=== PATIENT | male | born 1995 | race Caucasian/White ===

== ENCOUNTER 2024-08-18 09:37 | Emergency (ER) | payer MEDICAID, SELFPAY ==
[2024-08-18 09:46] VITALS: BP 139/95; PULSE 104; O2SAT 99
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
[2024-08-18 09:52] VITALS: BP 139/95; PULSE 99; RESP 20; TEMP 36.7; O2SAT 99; BMI 32.5
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
[2024-08-18 10:00] VITALS: BP 119/78; PULSE 91; O2SAT 98
[2024-08-18] MEDS: ACETAMINOPHEN 500MG TAB 1000 MG PO (10:02)
[2024-08-18] MEDS: LIDOCAINE 5% TRANSDERMAL PATCH 1 EACH TD (10:02)
[2024-08-18] MEDS: METHOCARBAMOL 500MG TABLET 1500 MG PO (10:02)
[2024-08-18 10:03] LABS: Basophils # 0.1 K/mm3 (0-0.2); Basophils % 0.5 % (0.1-2.0); Eosinophils # 0.5 Kmm3 (0.0-0.4); Eosinophils % 4.1 % (0.1-12.0); Lymphocytes # 2.1 K/mm3 (0.7-4.5); Lymphocytes % 15.9 % (10-50); Mean Corpuscular HGB Conc 34.1 g/dL (31.8-35.4); Mean Corpuscular Hemoglobin 32.3 pg (27.0-31.2); Mean Corpuscular Volume 94.5 fl (80-94); Mean Platelet Volume 9.8 fl (7.4-10.4); Monocytes # 1.3 K/mm3 (0.1-1.0); Monocytes % 10.3 % (1.7-9.3); Neutrophils % 68.9 % (37.0-80.0); Nucleated Red Blood Cells # 0 10^3/uL; Nucleated Red Blood Cells % 0 %; Platelet Count 304 K/mm3 (142-424); Red Blood Count 4.34 M/mm3 (4.60-6.20); Red Cell Distribution Width 13.4 % (11.5-17.5); Red Cell Distribution Width-SD 46.8 fL; White Blood Count 13.1 K/mm3 (4.8-10.8)
[2024-08-18 10:07] LABS: Albumin Level 4.4 g/dl (3.5-5.0); Chloride 109 mmol/L (98-107)
[2024-08-18 10:08] LABS: Potassium 4.2 mmoL/L (3.5-5.1); Sodium 139 mmol/L (136-145)
[2024-08-18 10:10] LABS: Alanine Aminotransferase 36 U/L (12-78); Aspartate Amino Transferase 31 U/L (17-59); Blood Urea Nitrogen 12 mg/dl (9-20); Creatinine Clearance Estimated 220 mL/min (50-200); Estimated Glomerular Filt Rate 133 ml/min (>60); GFR (African American) 161 ML/MIN (>60)
[2024-08-18 10:11] LABS: Albumin/Globulin Ratio 1.8 (1.1-1.8); Alkaline Phosphatase 84 U/L (38-126); Anion Gap 11.2 mEq/L (5-15); Bilirubin,Total 1.1 mg/dl (0.2-1.3); Calcium 8.7 mg/dl (8.4-10.2); Carbon Dioxide 23 mmol/L (22.0-30.0); Globulin 2.4 g/dL (1.3-3.2); Glucose 126 mg/dl (74-100); Lipase 36 U/L (23-300); Total Protein,Serum 6.8 g/dl (6.3-8.2)
--- NOTE | 2024-08-18 10:21 | PC.NURSE ---
pt gone to radiology
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
[2024-08-18] MEDS: 0.9 % SODIUM CHLORIDE 50 ML VIAL IV (10:35)
[2024-08-18] MEDS: SODIUM CHLORIDE 0.9% 10ML SYR (RAD ONLY) 10 ML IV (10:35)
[2024-08-18] MEDS: IOPAMIDOL-370 (76%);100ML BOTTLE 80 ML IV (10:35)
[2024-08-18 12:06] VITALS: BP 120/78; PULSE 78; RESP 19; TEMP 36.7
== END 2024-08-18 12:07 | disposition home or self-care (01) ==
PROVIDERS: Emergency Provider Student in an Organized Health Care Education/Training Program; PCP Family Medicine
DX: R07.81 Pleurodynia (principal); M25.572 Pain in left ankle and joints of left foot; S82.65XA Nondisplaced fracture of lateral malleolus of left fibula, initial encounter for closed fracture; W55.22XA Struck by cow, initial encounter
CPT/HCPCS: 29515; 70450; 71275; 73090; 73562; 73590; 73600; 73630; 73700; 80053; 83690; 85025; 99285; Q9967